=== PATIENT | male | born 1965 | race Caucasian/White ===

== ENCOUNTER 2018-08-12 17:39 | Emergency (ER) | payer OTHER ==
[~2018-08-12] VITALS: Ht 170.2 cm; Wt 127.0 kg
[2018-08-12 18:00] VITALS: BP 165/98
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
--- NOTE | 2018-08-12 18:42 | NUR ---
PATIENT AMBULATED TO ER BED 2
--- NOTE | 2018-08-12 19:07 | NUR ---
REPORT GIVEN TO HONING MACHINE OPERATOR PRODUCTION NURSE FOR CONTINUE OF CARE.
[2018-08-12 19:40] VITALS: BP 144/78
--- NOTE | 2018-08-12 19:40 | NUR ---
Patient discharged with v/s stable. Written and verbal after care instructions given and explained. Patient alert, oriented and verbalized understanding of instructions. Ambulatory with steady gait. All questions addressed prior to discharge. ID band removed. Patient advised to follow up with PMD. Rx of Azithromycin and Prednisone given. Patient educated on indication of medication including possible reaction and side effects. Opportunity to ask questions provided and answered.
== END 2018-08-12 19:40 | disposition home or self-care (01) ==
LOC: MED 17:39
DX: J02.0 Streptococcal pharyngitis (principal); I10 Essential (primary) hypertension
CPT/HCPCS: 99283

== ENCOUNTER 2021-02-14 07:22 | Day surgery (SDC) | payer OTHER ==
[~2021-02-14] VITALS: Ht 170.2 cm; Wt 115.7 kg
[2021-02-14] MEDS ORDERED: fentaNYL citrate 0.05 MG/ML VIAL ONE (09:02)
[2021-02-14] MEDS ORDERED: LIDOCAINE 2% 100 MG/5 ML UJET TP ONE ×2 (09:02→09:25)
[2021-02-14] MEDS ORDERED: fentaNYL citrate 0.05 MG/ML VIAL IVP ONE (09:25)
== END 2021-02-14 10:10 | disposition home or self-care (01) ==
LOC: MDS 07:22 → MFCC 07:22 → MDS 10:10
PROVIDERS: ATTEND Internal Medicine Gastroenterology
DX: Z12.11 Encounter for screening for malignant neoplasm of colon (principal); K63.5 Polyp of colon; I10 Essential (primary) hypertension; E78.00 Pure hypercholesterolemia, unspecified; E11.9 Type 2 diabetes mellitus without complications; Z86.010 Personal history of colon polyps; Z80.0 Family history of malignant neoplasm of digestive organs; Z79.82 Long term (current) use of aspirin; Z79.84 Long term (current) use of oral hypoglycemic drugs; Z79.899 Other long term (current) drug therapy
CPT/HCPCS: 45385; J3010

== ENCOUNTER 2021-06-19 15:26 | Emergency (ER) | payer OTHER ==
[~2021-06-19] VITALS: Ht 185.4 cm; Wt 104.3 kg
[2021-06-19 15:27] VITALS: BP 158/98
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
[2021-06-19] MEDS ORDERED: diazePAM 5 MG TAB PO ONE (16:20)
[2021-06-19] MEDS ORDERED: CYCL-711 PO (17:29)
[2021-06-19] MEDS ORDERED: NAPR-54 PO (17:29)
--- NOTE | 2021-06-19 18:19 | NUR ---
C COLLAR REMOVED PER DR ALVAREZ
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
== END 2021-06-19 18:20 | disposition home or self-care (01) ==
LOC: MED 15:26
DX: S13.4XXA Sprain of ligaments of cervical spine, initial encounter (principal); S39.012A Strain of muscle, fascia and tendon of lower back, initial encounter; E11.9 Type 2 diabetes mellitus without complications; I10 Essential (primary) hypertension; E78.00 Pure hypercholesterolemia, unspecified; V98.8XXA Other specified transport accidents, initial encounter; Y93.9 Activity, unspecified; Y92.89 Other specified places as the place of occurrence of the external cause; Y99.8 Other external cause status
CPT/HCPCS: 72125; 99284